=== PATIENT | male | born 1965 | race Caucasian/White ===

== ENCOUNTER 2017-06-29 17:34 | Observation (INO) | payer MEDICAID, OTHER ==
[~2017-06-29] VITALS: Ht 170.2 cm; Wt 95.0 kg
[2017-06-29 18:26] LABS: HEMATOCRIT 44.6 % (39.2-51.8); WHITE BLOOD COUNT 10.6 x10^3/uL (3.4-10)
[2017-06-29 18:31] LABS: BLOOD UREA NITROGEN 14 mg/dL (7-18)
[2017-06-29 18:36] LABS: ACETAMINOPHEN < 2 mcg/mL (10-30)
[2017-06-29 18:37] LABS: DAU SCREEN DISCLAIMER
[2017-06-29] MEDS ORDERED: QUETIAPINE 100MG TABLET PO SCH (21:00)
[2017-06-29] MEDS ORDERED: RISPERIDONE 2 MG TABLET PO SCH (21:00)
[2017-06-29] MEDS ORDERED: RISP2TAB35 PO (21:11)
[2017-06-29] MEDS ORDERED: QUET300T5 PO (21:11)
[2017-06-30] MEDS ORDERED: LORazepam 1MG TABLET ONE (01:29)
[2017-06-30] MEDS ORDERED: ONDANSETRON ODT 4 MG PO PRN (01:30)
[2017-06-30] MEDS ORDERED: DOCUSATE 100 MG CAPSULE PO PRN (01:30)
[2017-06-30] MEDS ORDERED: NICOTINE 14MG/24 HR PATCH.TD24 TD SCH (01:30)
[2017-06-30] MEDS: LORazepam 1MG TABLET PO PRN ×2 (01:31→21:53)
[2017-06-30 02:15] VITALS: BP 97/65
[2017-06-30] MEDS: DIPHENHYDRAMINE 50 MG CAPSULE PO PRN ×2 (02:33→21:53)
[2017-06-30 08:15] VITALS: BP 110/75
[2017-06-30] MEDS: NICOTINE 14MG/24 HR PATCH.TD24 TD SCH (08:58)
[2017-06-30] MEDS: ACETAMINOPHEN 325 MG TABLET PO PRN (10:25)
[2017-06-30] MEDS: GUAIFENESIN/DM 100-10MG, 5ML UDC PO PRN (10:48)
[2017-06-30] MEDS ORDERED: IBUPROFEN 200 MG TABLET PO PRN (17:30)
[2017-06-30] MEDS: DOXYCYCLINE 100MG TABLET PO SCH (20:41)
[2017-06-30] MEDS ORDERED: RISPERIDONE 2 MG TABLET PO SCH (21:00)
[2017-06-30] MEDS ORDERED: QUETIAPINE 100MG TABLET PO SCH (21:00)
[2017-06-30 22:30] VITALS: BP 132/79
[2017-07-01 07:43] LABS: HEMATOCRIT 43.2 % (39.2-51.8); HEMOGLOBIN 14.5 g/dL (13.7-18.0); WHITE BLOOD COUNT 6.6 x10^3/uL (3.4-10)
[2017-07-01 07:54] LABS: BLOOD UREA NITROGEN 9 mg/dL (7-18)
[2017-07-01 07:55] VITALS: BP 107/68
[2017-07-01] MEDS: DOXYCYCLINE 100MG TABLET PO SCH ×2 (08:15→20:05)
[2017-07-01] MEDS: GUAIFENESIN/DM 100-10MG, 5ML UDC PO PRN ×2 (08:15→15:53)
[2017-07-01] MEDS: NICOTINE 14MG/24 HR PATCH.TD24 TD SCH (08:15)
[2017-07-01] MEDS: ACETAMINOPHEN 325 MG TABLET PO PRN ×2 (08:15→20:05)
[2017-07-01] MEDS: LORazepam 1MG TABLET PO PRN (09:49)
[2017-07-01] MEDS ORDERED: RISPERIDONE 2 MG TABLET PO ONE (14:51)
[2017-07-01] MEDS ORDERED: LORazepam 2 MG/ML, 1ML IM PRN (15:30)
[2017-07-01 19:37] VITALS: BP 112/74
[2017-07-01] MEDS: RISPERIDONE 2 MG TABLET PO SCH (20:05)
[2017-07-01] MEDS: QUETIAPINE 200 MG TABLET PO SCH (20:06)
[2017-07-02] MEDS: ACETAMINOPHEN 325 MG TABLET PO PRN ×2 (08:19→21:40)
[2017-07-02] MEDS: RISPERIDONE 2 MG TABLET PO SCH ×2 (08:22→20:10)
[2017-07-02] MEDS: GUAIFENESIN/DM 100-10MG, 5ML UDC PO PRN ×2 (08:24→20:11)
[2017-07-02] MEDS: NICOTINE 14MG/24 HR PATCH.TD24 TD SCH (08:24)
[2017-07-02] MEDS: DOXYCYCLINE 100MG TABLET PO SCH ×2 (08:24→20:10)
[2017-07-02 08:26] VITALS: BP 118/76
[2017-07-02 19:41] VITALS: BP 120/78
[2017-07-02] MEDS: QUETIAPINE 200 MG TABLET PO SCH (20:11)
[2017-07-02] MEDS: ALUMINUM/MAG/SIMETHICONE 30 ML UDC PO PRN (21:40)
[2017-07-03 08:00] VITALS: BP 120/78
[2017-07-03] MEDS: RISPERIDONE 2 MG TABLET PO SCH ×2 (08:37→20:19)
[2017-07-03] MEDS: GUAIFENESIN/DM 100-10MG, 5ML UDC PO PRN (08:37)
[2017-07-03] MEDS: NICOTINE 14MG/24 HR PATCH.TD24 TD SCH (08:37)
[2017-07-03] MEDS: DOXYCYCLINE 100MG TABLET PO SCH ×2 (08:37→20:19)
[2017-07-03] MEDS: ALUMINUM/MAG/SIMETHICONE 30 ML UDC PO PRN (08:37)
[2017-07-03] MEDS: ACETAMINOPHEN 325 MG TABLET PO PRN ×2 (15:25→20:20)
[2017-07-03 19:44] VITALS: BP 118/78
[2017-07-03] MEDS: QUETIAPINE 200 MG TABLET PO SCH (20:20)
[2017-07-04] MEDS ORDERED: ONDANSETRON ODT 4 MG PO PRN (03:30)
[2017-07-04] MEDS ORDERED: DOCUSATE 100 MG CAPSULE PO PRN (03:30)
[2017-07-04] MEDS ORDERED: LORazepam 2 MG/ML, 1ML IM PRN (03:30)
[2017-07-04] MEDS ORDERED: DIPHENHYDRAMINE 50 MG CAPSULE PO PRN (03:30)
[2017-07-04 07:30] VITALS: BP 121/80
[2017-07-04] MEDS: NICOTINE 14MG/24 HR PATCH.TD24 TD SCH (07:46)
[2017-07-04] MEDS: GUAIFENESIN/DM 100-10MG, 5ML UDC PO PRN (07:47)
[2017-07-04] MEDS: ACETAMINOPHEN 325 MG TABLET PO PRN (07:47)
[2017-07-04] MEDS: RISPERIDONE 2 MG TABLET PO SCH ×2 (07:47→20:32)
[2017-07-04] MEDS: IBUPROFEN 200 MG TABLET PO PRN ×2 (07:47→20:32)
[2017-07-04] MEDS: LORazepam 1MG TABLET PO PRN (13:02)
[2017-07-04] MEDS: ALUMINUM/MAG/SIMETHICONE 30 ML UDC PO PRN (15:52)
[2017-07-04 19:44] VITALS: BP 118/76
[2017-07-04] MEDS: LACTOBACILLUS CHEW TABLET PO SCH (20:31)
[2017-07-04] MEDS: AMOXICILLIN/CLAV 875-125MG TABLET PO SCH (20:31)
[2017-07-04] MEDS: QUETIAPINE 200 MG TABLET PO SCH (20:32)
[2017-07-05 08:18] VITALS: BP 128/83
[2017-07-05] MEDS: LACTOBACILLUS CHEW TABLET PO SCH ×3 (08:30→19:31)
[2017-07-05] MEDS: AMOXICILLIN/CLAV 875-125MG TABLET PO SCH ×2 (08:30→19:31)
[2017-07-05] MEDS: RISPERIDONE 2 MG TABLET PO SCH ×2 (08:31→19:31)
[2017-07-05] MEDS: NICOTINE 14MG/24 HR PATCH.TD24 TD SCH ×2 (08:32→15:31)
[2017-07-05] MEDS: ACETAMINOPHEN 325 MG TABLET PO PRN ×2 (12:14→19:31)
[2017-07-05 19:11] VITALS: BP 126/82
[2017-07-05] MEDS: QUETIAPINE 200 MG TABLET PO SCH (19:31)
[2017-07-05] MEDS: LORazepam 1MG TABLET PO PRN (22:59)
[2017-07-06 08:00] VITALS: BP 106/69
[2017-07-06] MEDS: AMOXICILLIN/CLAV 875-125MG TABLET PO SCH (09:40)
[2017-07-06] MEDS: LACTOBACILLUS CHEW TABLET PO SCH (09:40)
[2017-07-06] MEDS: RISPERIDONE 2 MG TABLET PO SCH (09:41)
[2017-07-06] MEDS: IBUPROFEN 200 MG TABLET PO PRN (09:47)
== END 2017-07-06 12:45 ==
LOC: ED 21:51 → EDIP 22:00 → 3E 06-30 02:12
PROVIDERS: ADMIT Internal Medicine; ATTEND Internal Medicine
DX: R45.851 Suicidal ideations (principal); R44.0 Auditory hallucinations; F20.0 Paranoid schizophrenia; R03.0 Elevated blood-pressure reading, without diagnosis of hypertension; D72.829 Elevated white blood cell count, unspecified; F15.90 Other stimulant use, unspecified, uncomplicated; F17.210 Nicotine dependence, cigarettes, uncomplicated; J20.9 Acute bronchitis, unspecified; G89.29 Other chronic pain; K04.7 Periapical abscess without sinus; M54.30 Sciatica, unspecified side; Z59.0 Homelessness; Z81.8 Family history of other mental and behavioral disorders; Z91.14 Patient's other noncompliance with medication regimen; Z91.5 Personal history of self-harm; Z96.649 Presence of unspecified artificial hip joint
CPT/HCPCS: 36415; 71020; 80048; 80307; 80329; 82040; 84443; 85025; 87205; 93005; 99285; G0378; G0479; G0480